=== PATIENT | female | born 1955 | race Caucasian/White ===

== ENCOUNTER 2018-06-04 00:34 | Emergency (ER) | payer OTHER ==
--- NOTE | 2018-06-04 04:33 | EDM.PDOC ---
ED HPI GENERAL MEDICAL PROBLEM - General Chief Complaint: Upper Extremity Injury/Pain Stated Complaint: fall wrist pain Time Seen by Provider: 06/04/18 01:02 Source of Information: Reports: Patient, RN Notes Reviewed History Limitations: Reports: No Limitations - History of Present Illness INITIAL COMMENTS - FREE TEXT/NARRATIVE: The patient states that she caught her pants on a bed frame, tripped, and fell onto her outstretched right hand, around 23:30. She presents with a right wrist injury. She is otherwise uninjured. No prior right wrist injury. The patient's PCP is Allison Thurston. Right Wrist Pain Score (Numeric/FACES): 10 - Related Data Allergies Allergy/AdvReac Type Severity Reaction Status Date / Time Penicillins Allergy Cannot Verified 06/04/18 00:53 Remember Past Medical History Cardiovascular History: Reports: High Cholesterol (untreated), Hypertension Gastrointestinal History: Reports: GERD (untreated) Genitourinary History: Reports: Renal Calculus, Urinary Incontinence Musculoskeletal History: Reports: Arthritis, Fracture (C5-C7), Osteoporosis ( untreated) Psychiatric History: Reports: Anxiety - Past Surgical History GI Surgical History: Reports: Appendectomy Female Surgical History: Reports: Oophorectomy (left), Other (See Below) ( Uterine leiomyoma excision) Endocrine Surgical History: Reports: Thyroidectomy (partial) Social & Family History - Tobacco Use Smoking Status *Q: Former Smoker Years of Tobacco use: 45 Packs/Tins Daily: 1.5 Month/Year Tobacco Last Used: Quit 2014 - Alcohol Use Alcohol Use History: Yes Alcohol Use Frequency: Socially - Recreational Drug Use Recreational Drug Use: No - Living Situation & Occupation Living situation: Reports: , Alone Occupation: Employed (Owns a [employer] business) Review of Systems - Review of Systems Review Of Systems: ROS reveals no pertinent complaints other than HPI. ED EXAM, GENERAL - Physical Exam Exam: See Below Exam Limited By: No Limitations General Appearance: Alert, WD/WN, No Apparent Distress Extremities: Other (There is considerable swelling, although minimal ecchymosis , to the right wrist, hand, and fingers, when compared to the left. There is tenderness to palpation of the distal radius. Neurovascular status of the right upper extremity is intact.) ED TRAUMA EXTREMITY PROCEDURES - Splinting Right Upper Extremity Splint Site: Right wrist Pre-Procedure NV Status: Normal Post-Procedure NV Status: Normal Splint Material: Fiberglass Splint Design: Gutter Applied & Form Fitted By: Provider Provider Post-Splint Application NV Check: NV Status Normal Complications: No Course - Vital Signs Last Recorded V/S: Last Vital Signs Temp 36.9 C 06/04/18 00:57 Pulse 88 06/04/18 00:57 Resp 18 06/04/18 00:57 BP 169/75 H 06/04/18 00:57 Pulse Ox 100 06/04/18 00:57 - Orders/Labs/Meds Orders: Active Orders 24 hr Category Date Time Status Wrist Comp Min 3V Rt [CR] Stat Exams 06/04/18 00:59 Taken DME for Discharge [COMM] Stat Oth 06/04/18 05:14 Ordered - Re-Assessments/Exams Free Text/Narrative Re-Assessment/Exam: 06/04/18 04:20 4-view radiographs of the right wrist appear to demonstrate a comminuted, nondisplaced fracture of the distal radius with minimal angulation. No ulnar or navicular bone injury appreciated. The bones appear to be osteopenic. Formal read per the Radiologist pending. 06/04/18 05:14 The patient's right upper extremity was placed into a gutter splint, extending from the MCPs to above the elbow, with the elbow at 90 and the hand in a thumbs up position. The patient tolerated the procedure well. Post procedure, neurovascular status of the right hand is intact. The patient was given an arm sling. The patient will be discharged home with an [facility] prescription for Brutus, and a referral to Dr. Herrera. I am recommending that she ice and elevate her right wrist is much as possible over the next 2 days, and that she take over-the -counter ibuprofen [id number]. 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 As the patient's bones appear to be osteopenic on the x-ray, a discussion was held regarding osteoporosis. The patient states that she knows that she has osteoporosis, currently untreated, but that she already has an appointment to see her PCP, Allison Thurston, to discuss treatment options. I recommended that she keep that appointment. Departure - Departure Time of Disposition: 05:17 Disposition: Home, Self-Care 01 Condition: Fair Clinical Impression: Fracture of right distal radius - Discharge Information *PRESCRIPTION DRUG MONITORING PROGRAM REVIEWED*: Not Applicable *COPY OF PRESCRIPTION DRUG MONITORING REPORT IN PATIENT BENEDICT: Not Applicable Referrals: Allison Thurston NP [Primary Care Provider] - Thanh Herrera MD [Physician] - Forms: ED Department Discharge Additional Instructions: You were seen in the emergency room after falling and injuring your right wrist. Workup in the ER included x-rays of your right wrist, which confirmed that you have broken your distal radius. Your right arm was placed into a splint in the ER. The splint cannot get wet. We recommend that you ice and elevate your right wrist is much as possible over the next 2 days, to help minimize swelling. Take [id number] ibuprofen, 2-3 tablets (400-600 mg) every 8 hours, with food, around the clock. You have been given an [facility] prescription for the opioid pain reliever Brutus. Take 1-2 tablets of Brutus up to every 6 hours, as needed for pain not relieved by ibuprofen. If you take Brutus, do not drive for 10 hours afterwards. Brutus will likely cause constipation, so consider taking a stool softener. Follow-up with the Orthopedic Surgeon Dr. Thanh Herrera in about a week. If any other problems, please do not hesitate to return to the ER. - My Orders Last 24 Hours: My Active Orders 06/04/18 00:59 Wrist Comp Min 3V Rt [CR] Stat 06/04/18 05:14 DME for Discharge [COMM] Stat - Assessment/Plan Last 24 Hours: My Active Orders 06/04/18 00:59 Wrist Comp Min 3V Rt [CR] Stat 06/04/18 05:14 DME for Discharge [COMM] Stat
--- NOTE | 2018-06-04 07:45 | CR ---
Right wrist: Four views of the right wrist were obtained. Comparison: No prior wrist exam. Fracture is identified within the distal metaphysis of the radius. Minimal impaction is seen. Additional fracture is seen in the vertical direction extending into the epiphysis into the articular margin of the radius. No additional fracture or other abnormality is seen. Osteopenia is noted. Impression: 1. Distal radial fracture with articular extension. 2. Osteopenia. Diagnostic code #3
== END 2018-06-04 06:27 | disposition home or self-care (01) ==
LOC: JD.ED 00:34
DX: S52.501A Unspecified fracture of the lower end of right radius, initial encounter for closed fracture (principal); I10 Essential (primary) hypertension; W01.0XXA Fall on same level from slipping, tripping and stumbling without subsequent striking against object, initial encounter; Z88.0 Allergy status to penicillin; Z87.891 Personal history of nicotine dependence
CPT/HCPCS: 29125; 73110-26-RT; 73110-RT; 99283-25; 99284-25